=== PATIENT | female | born 1960 | race Hispanic/Latino ===

== ENCOUNTER 2019-04-28 07:35 | Day surgery (SDC) | payer OTHER ==
[2019-04-26 13:09] LABS: APPEARANCE,URINE Clear (CLEAR); BILIRUBIN,URINE Negative (NEGATIVE); COLOR,URINE Yellow (YELLOW); GLUCOSE, URINE (UA) Negative (NEGATIVE); KETONES,URINE Negative (NEGATIVE); LEUKOCYTE ESTERASE ,URINE Negative (NEGATIVE); NITRATE,URINE Negative (NEGATIVE); OCCULT BLOOD,URINE Negative (NEGATIVE); PH,URINE 5.5 (5.0-8.0); PROTEIN,URINE Negative (NEGATIVE); UROBILINOGEN,URINE 0.2 mg/dL (0.2-1.0)
[2019-04-26 13:13] LABS: CREATININE 0.8 mg/dL (0.5-1.5); POTASSIUM 4.4 mmol/L (3.5-5.1)
[2019-04-26 13:15] LABS: INR 0.95 (0.85-1.15); PARTIAL THROMBOPLASTIN TIME 27.4 SEC (26.3-35.5)
[2019-04-26 13:45] VITALS: BP 137/66
[2019-04-26 14:07] LABS: BASOPHILS % (AUTO) 0.3 % (0.0-5.0); EOSINOPHILS % (AUTO) 1.1 % (0.0-8.0); HEMATOCRIT 38.4 % (36-48); MEAN CORPUSCULAR HEMOGLOBIN 29.7 pg (27.0-33.0); MEAN CORPUSCULAR HGB CONC 32.8 g/dL (32.0-36.0); MEAN CORPUSCULAR VOLUME 90.5 fL (79-99); MONOCYTES % (AUTO) 9.3 % (3.0-13.0); NEUTROPHILS % (AUTO) 50.3 % (40.0-77.0); PLATELET COUNT (AUTO) 229 K/uL (130-400); RED BLOOD CELL COUNT(AUTO) 4.25 MIL/uL (4.00-5.50); RED CELL DISTRIBUTION WIDTH 15.7 % (11.0-15.5); WHITE BLOOD COUNT (AUTO) 6.8 K/uL (4.8-10.8)
[~2019-04-28] VITALS: Ht 154.9 cm; Wt 74.6 kg
[2019-04-28] VITALS (10 sets, daily range): BP systolic 125–154; BP diastolic 67–83
[~2019-04-28 07:35] MED LIST: CARV6.25 PO; LISI10TA7 PO
[2019-04-28] MEDS ORDERED: SODIUM CHLORIDE 0.9% 1000ML 1,000 ML IV SCH ×2 (08:00→11:27)
[2019-04-28] MEDS ORDERED: IOHEXOL 350 MG/ML 100ML INFUS..BTL IV ONE ×2 (10:06→11:02)
[2019-04-28] MEDS ORDERED: LIDOCAINE HCL 2% 20ML ONE (10:06)
[2019-04-28] MEDS ORDERED: IOHEXOL-350 50ML VIAL IV ONE (10:06)
[2019-04-28] MEDS ORDERED: NITROGLYCERIN 5 MG/ML 10 ML VIAL IV ONE (10:06)
[2019-04-28] MEDS ORDERED: MIDAZOLAM HCL 1 MG/ML 2ML VIAL ONE (10:25)
--- NOTE | 2019-04-28 13:35 | NUR ---
CT CT CHEST RESULTS REPORTED TO JOSH IVERSON NP. NO FURTHER ORDERS. STATED SHE WILL RELAY TO DR. CARTAGENA.
--- NOTE | 2019-04-28 16:10 | NUR ---
DISCHARGE PT DISCHARGED VIA WHEELCHAIR WITH . PT STABLE. NO COMPLAINTS MADE. CATH SITE TO RIGHT GROIN REMAINED SOFT, DRESSING DRY AND INTACT, NO OOZING NO HEMATOMA NOTED. DISCHARGE INSTRUCTIONS GIVEN TO AND PT, ALSO DEMONSTRATED TO ON HOW TO MONITOR CATH SITE FOR BLEEDING AND HEMATOMA, VERBALIZED UNDERSTANDING. PT ASSISTED TO BATHROOM PRIOR TO DISCHARGE, AMBULATED WITHOUT ANY PROBLEMS, VOIDED.
== END 2019-04-28 16:10 | disposition home or self-care (01) ==
LOC: DAH 07:35
PROVIDERS: ATTEND Internal Medicine Cardiovascular Disease
DX: I42.0 Dilated cardiomyopathy (principal); I44.7 Left bundle-branch block, unspecified; I11.9 Hypertensive heart disease without heart failure; I34.0 Nonrheumatic mitral (valve) insufficiency; Z79.899 Other long term (current) drug therapy; Z98.890 Other specified postprocedural states; Z79.01 Long term (current) use of anticoagulants
CPT/HCPCS: 36415; 71045; 71250; 80048; 81003; 85025; 85610; 85730; 93005; 93460; A4606; C1760; C1894 ×2; J1644; J2250; J3490 ×2; J7030; Q9965; Q9967 ×3; 99156; 99157

== ENCOUNTER 2019-06-08 06:34 | Observation (INO) | payer OTHER ==
[2019-06-06 12:40] VITALS: BP 118/64
[2019-06-06 12:47] LABS: BASOPHILS % (AUTO) 0.5 % (0.0-5.0); EOSINOPHILS % (AUTO) 1.2 % (0.0-8.0); LYMPHOCYTES % (AUTO) 43.8 % (21.0-51.0); MEAN CORPUSCULAR HEMOGLOBIN 31.2 pg (27.0-33.0); MEAN CORPUSCULAR HGB CONC 33.4 g/dL (32.0-36.0); MEAN CORPUSCULAR VOLUME 93.2 fL (79-99); MONOCYTES % (AUTO) 9.4 % (3.0-13.0); NEUTROPHILS % (AUTO) 45.1 % (40.0-77.0); NUCLEATED RED BLOOD CELLS 0.2 % (0.0-0.19); PLATELET COUNT (AUTO) 217 K/uL (130-400); RED BLOOD CELL COUNT(AUTO) 3.97 MIL/uL (4.00-5.50); RED CELL DISTRIBUTION WIDTH 14.4 % (11.0-15.5); WHITE BLOOD COUNT (AUTO) 5.9 K/uL (4.8-10.8)
[2019-06-06 13:01] LABS: CREATININE 0.8 mg/dL (0.5-1.5); POTASSIUM 4.5 mmol/L (3.5-5.1)
[2019-06-06 13:02] LABS: INR 0.95 (0.85-1.15); PARTIAL THROMBOPLASTIN TIME 28.9 SEC (26.3-35.5)
[2019-06-08] VITALS (11 sets, daily range): BP systolic 95–116; BP diastolic 49–69
[~2019-06-08] VITALS: Ht 154.9 cm; Wt 73.9 kg
[~2019-06-08 06:34] MED LIST changes: -LISI10TA7 PO; +SACU1TAB7 PO; +SPIR25TA6 PO
[2019-06-08] MEDS ORDERED: BUPIVACAINE/PF 0.25% 30ML VIAL IJ ONE (07:40)
[2019-06-08] MEDS ORDERED: CEFAZOLIN SODIUM 1 GM VIAL ONE (07:41)
[2019-06-08] MEDS ORDERED: IODIXANOL 320 MG/ML 100 ML VIAL ONE (07:41)
[2019-06-08] MEDS ORDERED: MEPERIDINE-PF 25 MG/ML SYG ONE ×2 (07:41→08:28)
[2019-06-08] MEDS ORDERED: MIDAZOLAM HCL 1 MG/ML 2ML VIAL ONE ×2 (07:41→08:28)
[2019-06-08] MEDS ORDERED: LIDOCAINE HCL 1% MDV 50ML VIAL ONE (07:41)
[2019-06-08] MEDS ORDERED: SODIUM CHLORIDE 0.9% 1000ML 1,000 ML IV SCH (08:00)
[2019-06-08] MEDS ORDERED: CEFAZOLIN SODIUM 1 GM VIAL IVP ONE (08:00)
[2019-06-08] MEDS ORDERED: ACETAMINOPHEN EXTRA STRENGTH 500 MG TABLET PO PRN (10:15)
--- NOTE | 2019-06-08 10:30 | NUR ---
ARRIVAL TO FLOOR PT IS AAOX4 DENIES CP DENIES SOB. LEFT UPPER CHEST DRESSING IS CLEAN DRY AND INTACT. LEFT ARM SLING IS IN PLACE. DENIES PAIN, FAMILY AT BEDSIDE, CALL LIGHT WITHIN REACH.
[2019-06-08] MEDS: ACETAMINOPHEN-CODEINE 300/30MG TAB PO PRN ×2 (13:04→18:21)
--- NOTE | 2019-06-08 17:45 | NUR ---
STATUS RESTING IN BED, DRESSING TO LEFT CHEST REMAINS INTACT. NO VISIBLE SIGNS OF DISTRESS NOTED, FAMILY AT BEDSIDE, CALL LIGHT WITHIN REACH.
[2019-06-08] MEDS: FAMOTIDINE 20MG TAB 20 MG TAB PO SCH (20:46)
[2019-06-08] MEDS: CARVEDILOL 6.25 MG TABLET PO SCH (20:46)
--- NOTE | 2019-06-09 | NUR ---
PT CONTINUES WITH LEFT SIDED SLING. S/P AICD PLACEMENT. HAS STATED PAIN TO SITE. ICE PACKS APPLIED TO SITE. STATED MINIMAL NAUSEA AND EMESIS X1 DURING THE NIGHT AND X2 DURING THE DAY. ABLE TO AMBULATE.
[2019-06-09 03:24] VITALS: BP 110/65
[2019-06-09] MEDS: ACETAMINOPHEN-CODEINE 300/30MG TAB PO PRN (03:36)
[2019-06-09 07:12] VITALS: BP 117/73
--- NOTE | 2019-06-09 07:30 | NUR ---
ASSESSMENT PT IS RESTING IN BED, HOB UP AT 30 DEGREES. NO VISIBLE SIGNS OF DISTRESS NOTED, BREATHING PATTERN IS EVEN AND UNLABORED. LEFT UPPER CHEST DRESSING IS CLEAN DRY AND INTACT. LEFT ARM SLING REMAINS IN PLACE.
[2019-06-09] MEDS: CARVEDILOL 6.25 MG TABLET PO SCH (07:36)
[2019-06-09] MEDS: FAMOTIDINE 20MG TAB 20 MG TAB PO SCH (07:36)
[2019-06-09] MEDS ORDERED: SPIRONOLACTONE 25 MG TAB PO SCH (09:00)
[2019-06-09 11:05] VITALS: BP 114/71
--- NOTE | 2019-06-09 13:00 | NUR ---
DISCHARGE TO HOME PATIENT AND FAMILY VERBALIZE DC INSTRUCTIONS UNDERSTANDING, AGREE TO TAKE MEDS ORDERED AND FOLLOW UP WITH MD OUTPATIENT, PIV REMOVED CATH TIP INTACT, TELE PACK REMOVED. DOWN VIA WC TO RIDE WITH NURSE AND AND .
== END 2019-06-09 12:51 | disposition home or self-care (01) ==
LOC: DAH 06:34 → DAHIP 06:35 → DAH 06:35 → 2AH 10:35
PROVIDERS: ADMIT Internal Medicine; ATTEND Internal Medicine
DX: I11.0 Hypertensive heart disease with heart failure (principal); I50.22 Chronic systolic (congestive) heart failure; I25.5 Ischemic cardiomyopathy; I44.7 Left bundle-branch block, unspecified; Z83.3 Family history of diabetes mellitus; Z98.51 Tubal ligation status; Z82.49 Family history of ischemic heart disease and other diseases of the circulatory system; Z79.899 Other long term (current) drug therapy
CPT/HCPCS: 33225; 33249; 36415; 71045; 80048; 85025; 85610; 85730; A4606; C1769 ×2; C1882; C1895 ×2; C1900; G0378 ×30; J0690; J2175 ×2; J2250 ×2; J3490 ×2; Q9967; 99156; 99157

== ENCOUNTER 2024-01-08 22:45 | Emergency (ER) | payer MEDICARE ==
[~2024-01-08] VITALS: Ht 154.9 cm; Wt 78.5 kg
[2024-01-08 23:10] LABS: BASOPHILS # (AUTO) 0.03 K/uL (0.00-0.20); BASOPHILS % (AUTO) 0.3 % (0.0-5.0); EOSINOPHILS # (AUTO) 0.16 K/uL (0.00-0.70); EOSINOPHILS % (AUTO) 1.5 % (0.0-8.0); HEMATOCRIT 32.4 % (36-48); IMMATURE GRANULOCYTE ABSOLUTE 0.05 K/uL (0-1); LYMPHOCYTES # (AUTO) 3.4 K/uL (1.0-4.8); LYMPHOCYTES % (AUTO) 30.8 % (21.0-51.0); MEAN CORPUSCULAR HEMOGLOBIN 30.3 pg (27.0-33.0); MEAN CORPUSCULAR HGB CONC 33.6 g/dL (32.0-36.0); MONOCYTES # (AUTO) 1.1 K/uL (0.1-1.0); MONOCYTES % (AUTO) 10.4 % (3.0-13.0); NEUTROPHILS # (AUTO) 6.2 K/uL (1.8-7.7); NEUTROPHILS % (AUTO) 56.5 % (40.0-77.0); PLATELET COUNT (AUTO) 215 K/uL (130-400); RED CELL DISTRIBUTION WIDTH 13.4 % (11.0-15.5)
[2024-01-08 23:18] LABS: CREATININE 0.9 mg/dL (0.5-1.5); POTASSIUM 4.2 mmol/L (3.5-5.1)
[2024-01-08 23:25] LABS: ALBUMIN 3.6 g/dL (3.5-5.0); BILIRUBIN,TOTAL 0.3 mg/dL (0.2-1.0); TOTAL PROTEIN, SERUM 7.2 g/dL (6.0-8.3)
[2024-01-09 00:02] VITALS: BP 141/82; PULSE 72; RESP 14; O2SAT 94
== END 2024-01-09 00:46 | disposition home or self-care (01) ==
LOC: EDH 22:45
DX: T82.9XXA Unspecified complication of cardiac and vascular prosthetic device, implant and graft, initial encounter (principal); I42.9 Cardiomyopathy, unspecified; E11.9 Type 2 diabetes mellitus without complications; I10 Essential (primary) hypertension; Z98.51 Tubal ligation status
CPT/HCPCS: 36415; 71045; 80053; 82550; 83735; 84484; 85025; 93005